=== PATIENT | female | born 1945 | race Caucasian/White ===

== ENCOUNTER 2016-08-31 23:11 | Emergency (ER) | payer OTHER, MEDICARE ==
[~2016-08-31] VITALS: Ht 175.3 cm; Wt 65.8 kg
[~2016-08-31 23:11] MED LIST: DULO60CA41 PO; POLY50DR OP
[2016-09-01] VITALS: BP_SYST 118
[2016-09-01] MEDS ORDERED: ONDANSETRON 4 MG ODT TAB PO ONE (00:15)
[2016-09-01 01:08] LABS: BILIRUBIN,URINE NEGATIVE (NEGATIVE); BLOOD, URINE 2+ (NEGATIVE); COLOR,URINE YELLOW (YELLOW); GLUCOSE,URINE NEGATIVE (NEGATIVE); KETONES,URINE 1+ (NEGATIVE); LEUKOCYTE ESTERASE ,URINE NEGATIVE (NEGATIVE); NITRITE, URINE NEGATIVE (NEGATIVE); PROTEIN URINE TRACE (NEGATIVE); UROBILINOGEN,URINE 0.2 (0.2-1.0)
[2016-09-01 01:24] LABS: CLARITY/URINE HAZY (CLEAR)
[2016-09-01 01:26] LABS: BACTERIA,URINE FEW /HPF (None Seen)
[2016-09-01 01:27] LABS: MUCUS,URINE None Seen /LPF (None Seen)
[2016-09-01] MEDS ORDERED: KETOROLAC TROMETHAMINE 60 MG/2 ML VIAL IM ONE (02:30)
[2016-09-01 02:50] VITALS: BP_SYST 116
== END 2016-09-01 02:50 | disposition home or self-care (01) ==
LOC: SED 23:11
DX: R11.2 Nausea with vomiting, unspecified (principal)
CPT/HCPCS: 81000; 96372; 99283; J1885; Q0162

== ENCOUNTER 2020-05-04 15:07 | Emergency (ER) | payer OTHER, MEDICARE, SELFPAY ==
[~2020-05-04] VITALS: Ht 175.3 cm; Wt 65.8 kg
[2020-05-04 15:10] VITALS: BP_SYST 160
--- NOTE | 2020-05-04 15:22 | NUR ---
Urine specimen collected and sent to lab for analyzing
[2020-05-04] MEDS ORDERED: NACL 0.9% 1,000 ML IV ONE (16:00)
[2020-05-04] MEDS ORDERED: ONDANSETRON HCL 4 MG/2 ML VIAL IVP ONE (16:00)
--- NOTE | 2020-05-04 16:00 | NUR ---
Patient to ER bed 04 to gown for evaluation. Side rails up.
--- NOTE | 2020-05-04 16:01 | NUR ---
Patient brought in ambulatory AOx4 from home complaining of projectile vomiting x 3 days worsening with nausea and left flank pain. Denies any pain. No other complaints/injuries per patient or as noted. Will continue to monitor.
--- NOTE | 2020-05-04 16:01 | NUR ---
Nestor smith in ED - 05/04/20 at 1643 by [email or web address] Patient brought in ambulatory AOx4 from home complaining of projectile vomiting x 3 days worsening,
--- NOTE | 2020-05-04 16:05 | NUR ---
JF Padgett at bedside examining patient.
--- NOTE | 2020-05-04 16:10 | NUR ---
# 20 gauge angiocath placed to LAC. Use of asceptic technique. Opsite placed over site. Blood return noted. Blood for lab drawn from site. Flushed with 10 cc of normal saline. No evidence of infiltration noted. Patient tolerated well.
[2020-05-04 16:21] LABS: BASOPHILS # (AUTO) 0.1 K/uL (0.0-0.2); BASOPHILS % (AUTO) 0.8 % (0.0-2.0); EOSINOPHILS % (AUTO) 0.3 % (0.0-4.0); HEMATOCRIT 40.6 % (36-48); HEMOGLOBIN 14.1 g/dL (12.0-16.0); LYMPHOCYTES # (AUTO) 0.8 K/uL (1.0-5.5); LYMPHOCYTES % (AUTO) 11.2 % (20.5-51.5); MEAN CORPUSCULAR HEMOGLOBIN 32 pg (27-31); MEAN CORPUSCULAR HGB CONC 35 % (32-36); MEAN CORPUSCULAR VOLUME 92 fL (79.0-98.0); MONOCYTES # (AUTO) 0.5 K/uL (0.0-1.0); MONOCYTES % (AUTO) 6.5 % (1.7-9.3); NEUTROPHILS % (AUTO) 81.2 % (40.0-70.0); PLATELET COUNT (AUTO) 232 K/uL (130-430); RED CELL DISTRIBUTION WIDTH 13.4 % (9.0-15.0); WHITE BLOOD COUNT (AUTO) 7.4 K/uL (4.8-10.8)
[2020-05-04 16:35] LABS: ANION GAP 4 (5-15); CALCIUM 11.7 mg/dL (8.4-11.0); CHLORIDE 103 mmol/L (98-107); CREATININE 0.84 mg/dL (0.55-1.30); GLUCOSE 116 mg/dL (70-99); POTASSIUM 4.4 mmol/L (3.5-5.1); SODIUM SERUM 139 mmol/L (136-145); UREA NITROGEN, BLOOD 16 mg/dL (8-21)
[2020-05-04 16:43] LABS: ALANINE AMINOTRANSFERASE 55 U/L (12-78); ALBUMIN 4.6 g/dL (3.4-4.8); ASPARTATE AMINOTRANSFERASE 37 U/L (10-37); LIPASE 98 U/L (73-393); TOTAL BILIRUBIN 0.7 mg/dL (0.0-1.0)
--- NOTE | 2020-05-04 16:51 | NUR ---
EKG performed at BS by NADER Costa. Physician given copy of EKG for review.
[2020-05-04 17:00] LABS: BILIRUBIN,URINE NEGATIVE (NEGATIVE); BLOOD, URINE 3+ (NEGATIVE); COLOR,URINE YELLOW (YELLOW); GLUCOSE,URINE NEGATIVE (NEGATIVE); KETONES,URINE NEGATIVE (NEGATIVE); LEUKOCYTE ESTERASE ,URINE NEGATIVE (NEGATIVE); NITRITE, URINE NEGATIVE (NEGATIVE); PH,URINE 5.5 (5.0-8.0); PROTEIN URINE 2+ (NEGATIVE); UROBILINOGEN,URINE 0.2 (0.2-1.0)
[2020-05-04] MEDS ORDERED: METOCLOPRAMIDE HCL 10 MG/2 ML VIAL IVP ONE (17:15)
[2020-05-04 17:16] LABS: CLARITY/URINE SLIGHTLY HAZY (CLEAR)
--- NOTE | 2020-05-04 17:18 | NUR ---
contrast adminstration questionnaire and consent signed and placed in chart for ct abdomen and pelvis with contrast.
[2020-05-04 17:28] LABS: BACTERIA,URINE MODERATE /HPF (None Seen)
[2020-05-04 17:29] LABS: CALCIUM OXALATE CRYSTALS,UR 0-10 /HPF (None Seen)
[2020-05-04 17:30] LABS: MUCUS,URINE 1+ /LPF (None Seen)
--- NOTE | 2020-05-04 18:05 | NUR ---
PAtient returned from CT scan. Patient reports she feels shaky. VS show hypertensive at 171/103. notifed.
--- NOTE | 2020-05-04 18:06 | NUR ---
Dr. Padgett at bedside to assess patient.
[2020-05-04 19:42] LABS: ANION GAP 5 (5-15); CALCIUM 10.7 mg/dL (8.4-11.0); CHLORIDE 103 mmol/L (98-107); CREATININE 0.79 mg/dL (0.55-1.30); GLUCOSE 119 mg/dL (70-99); POTASSIUM 4.6 mmol/L (3.5-5.1); SODIUM SERUM 139 mmol/L (136-145); UREA NITROGEN, BLOOD 15 mg/dL (8-21)
[2020-05-04 20:00] VITALS: BP_SYST 152
--- NOTE | 2020-05-04 20:00 | NUR ---
Patient given written and verbal discharge instructions and verbalizes understanding. ER MD discussed with patient the results and treatment provided. Patient in stable condition. ID arm band removed. IV catheter removed intact and dressing applied, no active bleeding. Rx of KEFLEX given. Patient educated on pain management and to follow up with PMD. Pain Scale . Opportunity for questions provided and answered. Medication side effect fact sheet provided.
== END 2020-05-04 20:00 | disposition home or self-care (01) ==
LOC: SED 15:07
DX: N39.0 Urinary tract infection, site not specified (principal); R11.10 Vomiting, unspecified; G43.901 Migraine, unspecified, not intractable, with status migrainosus; Z79.899 Other long term (current) drug therapy; Z20.828 Contact with and (suspected) exposure to other viral communicable diseases
CPT/HCPCS: 36415; 71045; 74177; 76376; 80048; 80053; 81000; 83690; 84484; 85025; 85610; 85730; 87086; 93005; 96361; 96374; 96375; 99285; C9803; J2405; J2765; J7030; Q9967; U0003

== ENCOUNTER 2021-09-05 18:46 | Emergency (ER) | payer OTHER, MEDICARE ==
[~2021-09-05] VITALS: Ht 175.3 cm; Wt 68.0 kg
[~2021-09-05 18:46] MED LIST changes: -DULO60CA41 PO; +DULO60CA42 PO
[2021-09-05 19:05] VITALS: BP_SYST 163
[2021-09-05] MEDS ORDERED: ONDANSETRON HCL 4 MG/2 ML VIAL IVP ONE (19:15)
[2021-09-05] MEDS ORDERED: NACL 0.9% 1,000 ML IV ONE (19:15)
[2021-09-05 19:34] LABS: BASOPHILS % (AUTO) 0.1 % (0.0-2.0); EOSINOPHILS % (AUTO) 0.2 % (0.0-4.0); HEMATOCRIT 42.3 % (36-48); HEMOGLOBIN 14.2 g/dL (12.0-16.0); LYMPHOCYTES # (AUTO) 0.6 K/uL (1.0-5.5); LYMPHOCYTES % (AUTO) 9.8 % (20.5-51.5); MEAN CORPUSCULAR HEMOGLOBIN 32 pg (27-31); MEAN CORPUSCULAR HGB CONC 34 % (32-36); MEAN CORPUSCULAR VOLUME 94 fL (79.0-98.0); MONOCYTES # (AUTO) 0.3 K/uL (0.0-1.0); NEUTROPHILS # (AUTO) 5.2 K/uL (1.8-7.7); NEUTROPHILS % (AUTO) 84.9 % (40.0-70.0); PLATELET COUNT (AUTO) 232 K/uL (130-430); RED BLOOD CELL COUNT(AUTO) 4.51 MIL/uL (4.2-6.2); RED CELL DISTRIBUTION WIDTH 13.4 % (9.0-15.0); WHITE BLOOD COUNT (AUTO) 6.1 K/uL (4.8-10.8)
[2021-09-05 20:01] LABS: BILIRUBIN,URINE NEGATIVE (NEGATIVE); BLOOD, URINE 1+ (NEGATIVE); COLOR,URINE YELLOW (YELLOW); GLUCOSE,URINE 3+ (NEGATIVE); KETONES,URINE NEGATIVE (NEGATIVE); LEUKOCYTE ESTERASE ,URINE NEGATIVE (NEGATIVE); NITRITE, URINE NEGATIVE (NEGATIVE); PROTEIN URINE NEGATIVE (NEGATIVE); UROBILINOGEN,URINE 0.2 (0.2-1.0)
[2021-09-05 20:03] LABS: ANION GAP 10 (5-15); CHLORIDE 101 mmol/L (98-107); CREATININE 0.73 mg/dL (0.55-1.30); GLUCOSE 126 mg/dL (70-99); SODIUM SERUM 144 mmol/L (136-145); UREA NITROGEN, BLOOD 17 mg/dL (8-21)
[2021-09-05 20:12] LABS: ALANINE AMINOTRANSFERASE 48 U/L (12-78); ALBUMIN 4.9 g/dL (3.4-4.8); ASPARTATE AMINOTRANSFERASE 41 U/L (10-37); CALCIUM 12.3 mg/dL (8.4-11.0); LIPASE 81 U/L (73-393); TOTAL BILIRUBIN 0.5 mg/dL (0.0-1.0)
[2021-09-05 20:15] LABS: CLARITY/URINE SLIGHTLY HAZY (CLEAR)
[2021-09-05 20:19] LABS: BACTERIA,URINE FEW /HPF (None Seen)
[2021-09-05 20:20] LABS: MUCUS,URINE None Seen /LPF (None Seen); YEAST,URINE Few /HPF (None Seen)
[2021-09-05] MEDS ORDERED: FLUCONAZOLE 200 MG TABLET (DIFLUCAN) PO ONE (20:30)
[2021-09-05] MEDS ORDERED: ONDA-8 TL (20:33)
[2021-09-05] MEDS ORDERED: METOCLOPRAMIDE HCL 10 MG/2 ML VIAL ONE (21:25)
[2021-09-05 21:44] VITALS: BP_SYST 132
== END 2021-09-05 21:44 | disposition home or self-care (01) ==
LOC: SED 18:46
DX: R11.2 Nausea with vomiting, unspecified (principal); E83.52 Hypercalcemia; B37.49 Other urogenital candidiasis; Z79.899 Other long term (current) drug therapy
CPT/HCPCS: 36415; 80053; 81000; 83690; 84484; 85025; 93005; 96361; 96374; 99284; J2405; J2765; J7030

== ENCOUNTER 2022-02-24 10:38 | Emergency (ER) | payer OTHER, MEDICARE ==
[~2022-02-24] VITALS: Ht 175.3 cm; Wt 63.5 kg
[~2022-02-24 10:38] MED LIST changes: +ONDA-8 TL
[2022-02-24 11:04] VITALS: BP_SYST 155
--- NOTE | 2022-02-24 11:05 | NUR ---
Patient triaged and placed in waiting room. VSS and patient appears in no acute distress at this time. Accompanied by SELF, awaiting available bed, and MD notified of need for MSE.
--- NOTE | 2022-02-24 12:33 | NUR ---
BIBS WITH C/C OF WORKING IN [employer] TWO WEEKS AGO AND THEN NOTICED A BLISTER DEVELOPED TO HER POSTERIOR KNEE. AT PRESENT TIME IT APPEARS ABOUT 2 CM LONG AND ABOUT 1 CM WIDE WITH ERRYTHEMA. DENIES ANY CURRENT PAIN. CONDITION STABLE. SEEN BY DR. DE LA CRUZ IN TRIAGE. PENDING ORDERS.
--- NOTE | 2022-02-24 12:50 | NUR ---
ER DR. DE LA CRUZ EXAMINING PT IN TRIAGE
[2022-02-24] MEDS ORDERED: SULF1TAB48 PO (12:56)
[2022-02-24] MEDS ORDERED: SULFAMETHOXAZOLE/TRIMETHOPR DS 1 TABLET PO ONE (13:00)
[2022-02-24 13:12] VITALS: BP_SYST 148
--- NOTE | 2022-02-24 13:14 | NUR ---
Patient given written and verbal discharge instructions and verbalizes understanding. ER MD discussed with patient the results and treatment provided. Patient in stable condition. ID arm band removed. Rx of BACTRIM given. Patient educated on pain management and to follow up with PMD. Pain Scale 0/10. Opportunity for questions provided and answered. Medication side effect fact sheet provided.
== END 2022-02-24 13:14 | disposition home or self-care (01) ==
LOC: SED 10:38
DX: S80.861A Insect bite (nonvenomous), right lower leg, initial encounter (principal); Z79.899 Other long term (current) drug therapy; W57.XXXA Bitten or stung by nonvenomous insect and other nonvenomous arthropods, initial encounter; Y93.89 Activity, other specified; Y92.89 Other specified places as the place of occurrence of the external cause; Y99.8 Other external cause status
CPT/HCPCS: 99283

== ENCOUNTER 2023-11-13 12:09 | Emergency (ER) | payer OTHER, MEDICARE ==
[~2023-11-13] VITALS: Ht 175.3 cm; Wt 61.2 kg
[~2023-11-13 12:09] MED LIST changes: +SULF1TAB48 PO
[2023-11-13 13:00] VITALS: BP_SYST 155; PULSE 61; RESP 17; TEMP 98.4; O2SAT 95
[2023-11-13 14:49] LABS: BASOPHILS % (AUTO) 0.6 % (0.0-2.0); EOSINOPHILS % (AUTO) 0.7 % (0.0-4.0); HEMATOCRIT 41.4 % (36-48); HEMOGLOBIN 14.2 g/dL (12.0-16.0); LYMPHOCYTES % (AUTO) 14.7 % (20.5-51.5); MEAN CORPUSCULAR HEMOGLOBIN 32 pg (27-31); MEAN CORPUSCULAR HGB CONC 34 % (32-36); MEAN CORPUSCULAR VOLUME 93 fL (79.0-98.0); MONOCYTES # (AUTO) 0.5 K/uL (0.0-1.0); MONOCYTES % (AUTO) 7.5 % (1.7-9.3); NEUTROPHILS # (AUTO) 5.4 K/uL (1.8-7.7); NEUTROPHILS % (AUTO) 76.5 % (40.0-70.0); PLATELET COUNT (AUTO) 257 K/uL (130-430); RED BLOOD CELL COUNT(AUTO) 4.46 MIL/uL (4.2-6.2); RED CELL DISTRIBUTION WIDTH 12.8 % (9.0-15.0)
[2023-11-13 15:04] LABS: ALANINE AMINOTRANSFERASE 36 U/L (12-78); ALBUMIN 4.2 g/dL (3.4-4.8); ANION GAP 6 (5-15); ASPARTATE AMINOTRANSFERASE 25 U/L (10-37); CALCIUM 10.5 mg/dL (8.4-11.0); CARBON DIOXIDE 31 mmol/L (23-29); CHLORIDE 105 mmol/L (98-107); CREATININE 0.73 mg/dL (0.55-1.30); GLUCOSE 105 mg/dL (74-106); LIPASE 49 U/L (16-77); POTASSIUM 4.9 mmol/L (3.5-5.1); SODIUM SERUM 142 mmol/L (136-145); TOTAL BILIRUBIN 0.6 mg/dL (0.0-1.0); TOTAL PROTEIN, SERUM 7.5 g/dL (6.4-8.3); UREA NITROGEN, BLOOD 13 mg/dL (8-21)
[2023-11-13 16:49] LABS: BILIRUBIN,URINE NEGATIVE (NEGATIVE); BLOOD, URINE 1+ (NEGATIVE); CLARITY/URINE CLEAR (CLEAR); COLOR,URINE YELLOW (YELLOW); GLUCOSE,URINE 3+ (NEGATIVE); KETONES,URINE TRACE (NEGATIVE); LEUKOCYTE ESTERASE ,URINE NEGATIVE (NEGATIVE); NITRITE, URINE NEGATIVE (NEGATIVE); PROTEIN URINE NEGATIVE (NEGATIVE); UROBILINOGEN,URINE 0.2 (0.2-1.0)
[2023-11-13] MEDS ORDERED: ONDANSETRON HCL 4 MG/2 ML VIAL ONE (16:52)
[2023-11-13] MEDS: ONDANSETRON HCL 4 MG/2 ML VIAL IVP ONE (17:04)
[2023-11-13] MEDS: NACL 0.9% 1,000 ML IV ONE (17:04)
[2023-11-13] MEDS: DIPHENHYDRAMINE INJ 50 MG/ML VIAL IVP ONE (17:07)
[2023-11-13] MEDS: METOCLOPRAMIDE HCL 10 MG/2 ML VIAL IVP ONE (17:09)
[2023-11-13] MEDS: KETOROLAC TROMETHAMINE 30 MG VIAL IVP ONE (17:09)
[2023-11-13 17:25] LABS: BACTERIA,URINE FEW /HPF (None Seen); MUCUS,URINE None Seen /LPF (None Seen); WBC,URINE 0-3 /HPF (0-3)
[2023-11-13] MEDS ORDERED: METO5TAB86 PO (17:36)
[2023-11-13] MEDS ORDERED: TRAM50TA2 PO (17:36)
[2023-11-13] MEDS ORDERED: LOPE2CAP PO (17:36)
[2023-11-13 17:48] VITALS: BP_SYST 155; PULSE 90; RESP 17; TEMP 98; O2SAT 95
== END 2023-11-13 17:51 | disposition home or self-care (01) ==
LOC: SED 12:09
DX: K52.9 Noninfective gastroenteritis and colitis, unspecified (principal); G43.909 Migraine, unspecified, not intractable, without status migrainosus; Z79.899 Other long term (current) drug therapy
CPT/HCPCS: 99284; 96374; 96375; 96361; 80053; 81001; 83690; 85025; 36415; J1200; J1885; J2765; J2405; J7030; 81000; 81015

== ENCOUNTER 2024-01-17 17:59 | Emergency (ER) | payer OTHER, MEDICARE ==
[~2024-01-17] VITALS: Ht 175.3 cm; Wt 61.2 kg
[~2024-01-17 17:59] MED LIST changes: +LOPE2CAP PO; +METO5TAB86 PO; +TRAM50TA2 PO
[2024-01-17 18:06] VITALS: BP_SYST 169; PULSE 126; RESP 16; TEMP 97.3; O2SAT 99
[2024-01-17 19:10] LABS: BILIRUBIN,URINE NEGATIVE (NEGATIVE); BLOOD, URINE 2+ (NEGATIVE); CLARITY/URINE CLEAR (CLEAR); COLOR,URINE YELLOW (YELLOW); GLUCOSE,URINE 3+ (NEGATIVE); KETONES,URINE 1+ (NEGATIVE); LEUKOCYTE ESTERASE ,URINE NEGATIVE (NEGATIVE); NITRITE, URINE NEGATIVE (NEGATIVE); PROTEIN URINE 1+ (NEGATIVE); UROBILINOGEN,URINE 0.2 (0.2-1.0)
[2024-01-17] MEDS: NACL 0.9% 1,000 ML IV ONE (19:17)
[2024-01-17] MEDS: ONDANSETRON HCL 4 MG/2 ML VIAL IVP ONE (19:17)
[2024-01-17 19:18] LABS: BASOPHILS % (AUTO) 0.4 % (0.0-2.0); EOSINOPHILS % (AUTO) 0.1 % (0.0-4.0); HEMATOCRIT 36.8 % (36-48); HEMOGLOBIN 12.7 g/dL (12.0-16.0); LYMPHOCYTES # (AUTO) 0.3 K/uL (1.0-5.5); LYMPHOCYTES % (AUTO) 6.8 % (20.5-51.5); MEAN CORPUSCULAR HEMOGLOBIN 33 pg (27-31); MEAN CORPUSCULAR HGB CONC 35 % (32-36); MEAN CORPUSCULAR VOLUME 94 fL (79.0-98.0); MONOCYTES # (AUTO) 0.4 K/uL (0.0-1.0); MONOCYTES % (AUTO) 9.2 % (1.7-9.3); NEUTROPHILS # (AUTO) 3.9 K/uL (1.8-7.7); NEUTROPHILS % (AUTO) 83.5 % (40.0-70.0); PLATELET COUNT (AUTO) 163 K/uL (130-430); RED BLOOD CELL COUNT(AUTO) 3.92 MIL/uL (4.2-6.2); RED CELL DISTRIBUTION WIDTH 13.2 % (9.0-15.0); WHITE BLOOD COUNT (AUTO) 4.7 K/uL (4.8-10.8)
[2024-01-17 19:34] LABS: BACTERIA,URINE FEW /HPF (None Seen); MUCUS,URINE None Seen /LPF (None Seen); RBC,URINE 20-50 /HPF (0-3); WBC,URINE 0-3 /HPF (0-3)
[2024-01-17 20:11] LABS: ALANINE AMINOTRANSFERASE 36 U/L (12-78); ALBUMIN 4.2 g/dL (3.4-4.8); ANION GAP 11 (5-15); ASPARTATE AMINOTRANSFERASE 33 U/L (10-37); BILIRUBIN,DIRECT 0.1 mg/dL (0.0-0.3); CARBON DIOXIDE 27 mmol/L (23-29); CHLORIDE 99 mmol/L (98-107); CREATININE 0.66 mg/dL (0.55-1.30); GLUCOSE 136 mg/dL (74-106); LIPASE 35 U/L (16-77); POTASSIUM 3.9 mmol/L (3.5-5.1); SODIUM SERUM 137 mmol/L (136-145); TOTAL BILIRUBIN 0.5 mg/dL (0.0-1.0); TOTAL PROTEIN, SERUM 7.3 g/dL (6.4-8.3); UREA NITROGEN, BLOOD 10 mg/dL (8-21)
[2024-01-17] MEDS: MORPHINE 4 MG INJ. 4 MG/ML VIAL IVP ONE (20:18)
[2024-01-17] MEDS ORDERED: ONDA-8 TL (22:02)
[2024-01-17 22:05] VITALS: BP_SYST 164; PULSE 89; RESP 26; TEMP 97.6; O2SAT 100
== END 2024-01-17 22:05 | disposition home or self-care (01) ==
LOC: SED 17:59
DX: R11.2 Nausea with vomiting, unspecified (principal); B34.9 Viral infection, unspecified; G43.909 Migraine, unspecified, not intractable, without status migrainosus; Z98.890 Other specified postprocedural states; Z79.899 Other long term (current) drug therapy; Z79.2 Long term (current) use of antibiotics
CPT/HCPCS: 99285; 74176; 96374; 96361; 96375; 80076; 80048; 81001; 83690; 85025; 36415; J2405; J2270; J7030; 81000; 81015

== ENCOUNTER 2024-02-11 15:26 | Emergency (ER) | payer OTHER, MEDICARE ==
[~2024-02-11] VITALS: Ht 175.3 cm; Wt 61.2 kg
[2024-02-11 16:05] VITALS: BP_SYST 141; PULSE 75; RESP 22; TEMP 98.1; O2SAT 99
[2024-02-11] MEDS: DIPHENHYDRAMINE HCL 50 MG CAPSULE PO ONE ×2 (16:46)
[2024-02-11] MEDS: predniSONE 20 MG TABLET PO ONE (16:46)
[2024-02-11] MEDS ORDERED: DIPH25CA83 PO (17:29)
[2024-02-11] MEDS ORDERED: IBUP-1969 PO (17:29)
[2024-02-11] MEDS ORDERED: PRED20TA PO (17:29)
[2024-02-11] MEDS ORDERED: HYDC2.5% TP (17:29)
[2024-02-11] MEDS: KETOROLAC TROMETHAMINE 30 MG VIAL IM ONE (17:37)
[2024-02-11 17:45] VITALS: BP_SYST 141; PULSE 75; RESP 22; TEMP 98.1; O2SAT 99
[2024-02-12] MEDS ORDERED: CALA TP (18:42)
[2024-02-12] MEDS ORDERED: PRED20TA PO (18:42)
[2024-02-12] MEDS ORDERED: HYDC2.5% TP (18:42)
== END 2024-02-11 17:45 | disposition home or self-care (01) ==
LOC: SED 15:26
DX: R21 Rash and other nonspecific skin eruption (principal); T78.49XA Other allergy, initial encounter; G43.909 Migraine, unspecified, not intractable, without status migrainosus; Z79.899 Other long term (current) drug therapy; Z79.2 Long term (current) use of antibiotics; X58.XXXA Exposure to other specified factors, initial encounter
CPT/HCPCS: 99283; 96372; Q0163; J7512; J1885

== ENCOUNTER 2024-02-12 17:22 | Emergency (ER) | payer OTHER, MEDICARE ==
[~2024-02-12] VITALS: Ht 175.3 cm; Wt 61.2 kg
[~2024-02-12 17:22] MED LIST changes: +DIPH25CA83 PO; +HYDC2.5% TP; +IBUP-1969 PO; +PRED20TA PO
[2024-02-12 17:30] VITALS: BP_SYST 156; PULSE 87; RESP 18; TEMP 98.9; O2SAT 97
[2024-02-12] MEDS ORDERED: CALA TP (18:42)
[2024-02-12] MEDS ORDERED: PRED20TA PO (18:42)
[2024-02-12] MEDS ORDERED: HYDC2.5% TP (18:42)
[2024-02-12 18:45] VITALS: BP_SYST 156; PULSE 87; RESP 18; TEMP 98.9; O2SAT 97
== END 2024-02-12 18:45 | disposition home or self-care (01) ==
LOC: SED 17:22
DX: R21 Rash and other nonspecific skin eruption (principal); G43.909 Migraine, unspecified, not intractable, without status migrainosus; Z79.899 Other long term (current) drug therapy; Z79.2 Long term (current) use of antibiotics
CPT/HCPCS: 99283